=== PATIENT | female | born 1935 | race Caucasian/White ===

== ENCOUNTER 2017-03-22 11:59 | Inpatient (IN) | payer OTHER ==
[~2017-03-22] VITALS: Ht 160 cm; Wt 56.0 kg
[2017-03-22] MEDS ORDERED: MoRPHine SULFATE 2 MG/ML CARP IV PRN (12:15)
[2017-03-22] MEDS: MoRPHine SULFATE 4 MG/ML 1 ML CARP\\VIAL IV PRN ×2 (12:28→13:38)
[2017-03-22 12:41] LABS: BASO % 0.4 %; BASO ABS # 0.03 K/uL (0-0.2); EOS % 0.4 %; HEMATOCRIT 32.8 % (37-47); IG% 0.3 %; LYMPH % 23.4 %; LYMPH ABS # 1.69 K/uL (1.2-3.4); MEAN CELL VOLUME 119.3 fL (80-100); MEAN CORPUSCULAR HEMOGLOBIN 41.1 pg (25-34); MEAN CORPUSCULAR HGB CONC 34.5 g/dl (32-36); MEAN PLATELET VOLUME 9.4 fL (7.4-10.4); NEUT % 65.5 %; PLATELET COUNT 459 K/uL (130-400); RED BLOOD COUNT 2.75 M/uL (4.2-5.4); WHITE BLOOD COUNT 7.22 K/uL (4.8-10.8)
[2017-03-22 12:52] LABS: INR 1.1 (0.9-1.1); PARTIAL THROMBOPLASTIN RATIO 1.1
[2017-03-22 12:58] LABS: BUN/CREATININE RATIO 15.3 (10-20); CALCIUM 9.1 mg/dl (8.5-10.1); CREATININE 1.1 mg/dl (0.60-1.20); POTASSIUM 3.8 mmol/L (3.5-5.1)
[2017-03-22 13:13] LABS: COMPLETE YES
--- NOTE | 2017-03-22 13:31 | DIAGNOSTIC IMAGING REPORT ---
LEFT FEMUR 2 VIEWS CLINICAL HISTORY: Fall with left leg pain. FINDINGS: AP and crosstable lateral views of left femur are obtained. No prior studies are available for comparison at the time of dictation. The skeletal structures are osteopenic. A nondistracted intertrochanteric fracture is suspected. The distal femur is intact. The visualized left hemipelvis appears maintained. Mild arthritic changes present in the left hip. Mild soft tissue swelling is seen overlying the left hip. IMPRESSION: Suspect a nondistracted intertrochanteric fracture of the left femur. Electronically signed by: Lion Lam M.D. 03/22/2017 1:29 PM Dictated Date/Time: 03/22/2017 1:28 PM
--- NOTE | 2017-03-22 13:35 | EMERGENCY ROOM VISIT NOTE ---
History Report prepared by Fercho: Alvaro Murillo Under the Supervision of: Dr. Romero Cohn D.O. First contact with patient: 12:07 Stated Complaint: FALL/L-HIP PAIN History of Present Illness The patient is a 81 year old female who presents to the Emergency Room with complaints of a sudden fall occurring prior to arrival. The patient states that her dog jumped on her and knocked her over, and now she is having left hip, leg , and knee pain. She states that she hit her left hip when she fell, and afterwards she could not get up. She states that she did not hit her head or hurt anything else during the fall. Source of History: patient Onset: prior to arrival Position: other (global) Quality: other (fall) Timing: other (sudden) Note: Associated symptoms: Left hip, leg, and knee pain Review of Systems See HPI for pertinent positives & negatives. A total of 10 systems reviewed and were otherwise negative. Past Medical & Surgical Medical Problems: (1) Hip fracture (2) HTN (hypertension) Social History Marital Status: Occupation Status: retired Current/Historical Medications Scheduled Cholecalciferol (Vitamin D3), 1 TAB PO DAILY Cyanocobalamin (Vitamin B-12), 1,000 MCG PO DAILY Hydroxyurea (Hydrea Cap), 500 MG PO BID Levothyroxine Sodium (Levothyroxine Sodium), 1 TAB PO DAILY Allergies Coded Allergies: No Known Allergies (Unverified , 03/22/17) Physical Exam Vital Signs Date Time Temp Pulse Resp B/P (MAP) Pulse Ox O2 Delivery O2 Flow Rate FiO2 03/22/17 14:23 86 26 199/83 100 Room Air 03/22/17 14:14 100 Room Air 03/22/17 13:58 86 19 201/138 100 Room Air 03/22/17 13:41 86 19 199/89 100 Room Air 03/22/17 13:20 03/22/17 13:00 75 03/22/17 12:39 77 21 210/86 99 Room Air 03/22/17 12:11 36.8 86 22 202/75 97 Room Air Physical Exam CONSTITUTIONAL/VITAL SIGNS: Reviewed / noted above. GENERAL: Non-toxic in appearance. INTEGUMENTARY: Warm, dry, and [place]. HEAD: Normocephalic. EYES: without scleral icterus or trauma. ENT/OROPHARYNX: clear and moist. LYMPHADENOPATHY/NECK: Is supple without lymphadenopathy or meningismus. RESPIRATORY: Lungs clear and equal. CARDIOVASCULAR: Regular rate and rhythm. GI/ABDOMEN: Soft and nontender. No organomegaly or pulsatile mass. No rebound or guarding. Normal bowel sounds. EXTREMITIES: Moderate pain in the left hip with movement. Slight shortening of the left hip compared to the right. BACK: No CVA tenderness. NEUROLOGICAL: Intact without focal deficits. PSYCHIATRIC: normal affect. MUSCULOSKELETAL: Normally developed with good muscle tone. Medical Decision & Procedures ER Provider Diagnostic Interpretation: Radiology results as stated below per my review and radiologist interpretation: LEFT FEMUR 2 VIEWS CLINICAL HISTORY: Fall with left leg pain. FINDINGS: AP and crosstable lateral views of left femur are obtained. No prior studies are available for comparison at the time of dictation. The skeletal structures are osteopenic. A nondistracted intertrochanteric fracture is suspected. The distal femur is intact. The visualized left hemipelvis appears maintained. Mild arthritic changes present in the left hip. Mild soft tissue swelling is seen overlying the left hip. IMPRESSION: Suspect a nondistracted intertrochanteric fracture of the left femur. Electronically signed by: Lion Lam M.D. 03/22/2017 1:29 PM Dictated Date/Time: 03/22/2017 1:28 PM SINGLE VIEW CHEST CLINICAL HISTORY: Trauma. Fall. FINDINGS: An AP, portable, supine chest radiograph is obtained. No prior studies are available for comparison at the time of dictation. The examination is degraded by portable technique and patient rotation. The heart is top normal for projection. There is atherosclerotic calcification of the thoracic aorta. Nonspecific interstitial thickening is noted. No airspace consolidation, large pleural effusion, or pneumothorax is seen. Apical scarring is observed. The skeletal structures are osteopenic. The bony thorax is grossly intact. An indeterminant calcification is seen in the right upper quadrant of the abdomen. IMPRESSION: No acute cardiopulmonary abnormality. Electronically signed by: Lion Lam M.D. 03/22/2017 1:31 PM Dictated Date/Time: 03/22/2017 1:30 PM LEFT HIP 2 VIEWS HISTORY: Left hip pain COMPARISON: Left femur 03/22/2017. FINDINGS: Nondisplaced intertrochanteric fracture of the proximal left femur. No dislocation. The visualized pelvic bones and right hip are intact. The sacrum is maintained. The bones are osteopenic. Soft tissues are unremarkable. No radiopaque foreign bodies. IMPRESSION: Nondisplaced intertrochanteric fracture of the proximal left femur. Electronically signed by: Leighton Uribe M.D. 03/22/2017 1:32 PM Dictated Date/Time: 03/22/2017 1:31 PM Laboratory Results 03/22/17 12:19 Red Blood Count 2.75, Mean Corpuscular Volume 119.3, Mean Corpuscular Hemoglobin 41.1, Mean Corpuscular Hemoglobin Concent 34.5, Mean Platelet Volume 9.4, Neutrophils (%) (Auto) 65.5, Lymphocytes (%) (Auto) 23.4, Monocytes (%) ( Auto) 10.0, Eosinophils (%) (Auto) 0.4, Basophils (%) (Auto) 0.4, Neutrophils # (Auto) 4.73, Lymphocytes # (Auto) 1.69, Monocytes # (Auto) 0.72, Eosinophils # ( Auto) 0.03, Basophils # (Auto) 0.03 03/22/17 12:19 Test 03/22/17 12:19 03/22/17 14:30 White Blood Count 7.22 K/uL (4.8-10.8) Red Blood Count 2.75 M/uL (4.2-5.4) Hemoglobin 11.3 g/dL (12.0-16.0) Hematocrit 32.8 % (37-47) Mean Corpuscular Volume 119.3 fL (80-100) Mean Corpuscular Hemoglobin 41.1 pg (25-34) Mean Corpuscular Hemoglobin Concent 34.5 g/dl (32-36) Platelet Count 459 K/uL (130-400) Mean Platelet Volume 9.4 fL (7.4-10.4) Neutrophils (%) (Auto) 65.5 % Lymphocytes (%) (Auto) 23.4 % Monocytes (%) (Auto) 10.0 % Eosinophils (%) (Auto) 0.4 % Basophils (%) (Auto) 0.4 % Neutrophils # (Auto) 4.73 K/uL (1.4-6.5) Lymphocytes # (Auto) 1.69 K/uL (1.2-3.4) Monocytes # (Auto) 0.72 K/uL (0.11-0.59) Eosinophils # (Auto) 0.03 K/uL (0-0.5) Basophils # (Auto) 0.03 K/uL (0-0.2) RDW Standard Deviation 57.2 fL (36.4-46.3) RDW Coefficient of Variation 13.2 % (11.5-14.5) Immature Granulocyte % (Auto) 0.3 % Immature Granulocyte # (Auto) 0.02 K/uL (0.00-0.02) Macrocytosis PRESENT Prothrombin Time 12.0 SECONDS (9.0-12.0) Prothromb Time International Ratio 1.1 (0.9-1.1) Activated Partial Thromboplast Time 28.8 SECONDS (21.0-31.0) Partial Thromboplastin Ratio 1.1 Anion Gap 7.0 mmol/L (3-11) Est Creatinine Clear Calc Drug Dose 33.7 ml/min Estimated GFR () 54.9 Estimated GFR (Non- 47.4 BUN/Creatinine Ratio 15.3 (10-20) Calcium Level 9.1 mg/dl (8.5-10.1) Laboratory results as stated above per my review. Medications Administered Medications (Trade) Dose Ordered Sig/Riky Route Start Time Stop Time Status Last Admin Dose Admin Morphine Sulfate (MoRPHine SULFATE INJ) 4 mg Q60M PRN IV 03/22/17 12:15 04/05/17 12:14 03/22/17 13:38 4 MG Hydralazine HCl (HydrALAZINE INJ) 20 mg STK-MED ONCE .ROUTE 03/22/17 14:22 03/22/17 14:23 DC 03/22/17 14:24 10 MG ECG Indication: other (fall ) Rate (beats per minute): 80 Rhythm: normal sinus Findings: no ectopy, other (No injury) ED Course 1207: Previous medical records were reviewed. The patient was evaluated in room A12. A complete history and physical examination was performed. 1215: Morphine Sulfate 4mg IV, Morphine Sulfate 2mg IV 1337: Discussed the patient's case with Hosea Lucero PA-C. The patient will be evaluated for further treatment and disposition. Medical Decision Differential includes close head injury, intracranial bleed, facial trauma, cervical spine trauma, chest and thoracic trauma, abdominal and intra-abdominal trauma, spine neurologic trauma, extremity trauma. This is an 81-year-old female who presents to the ED with a chief complaint of a fall and left hip pain. The patient states that she was knocked over by her dog this morning falling onto her left hip. She was not able to get up. She presents complaining of left hip pain that is worse with movement. Her exam is noted above. She has some mild shortening of her left leg compared to the right. She has moderate pain on movement of her left hip. Patient denies any other injuries. She does not have any other physical exam findings suggesting other acute injuries. Denies striking her head. Denies loss of consciousness or near syncope. She is distally neurovascularly intact. X-ray of the pelvis and left hip revealed findings suggesting a nondisplaced impacted left intertrochanteric hip fracture. Chest x-ray is negative for acute disease. CBC and PRP were unremarkable. EKG shows a normal sinus rhythm. The patient will be seen by the hospitalist service and subsequently orthopedics for further inpatient evaluation and care. Medication Reconcilliation Current Medication List: was personally reviewed by me Blood Pressure Screening Patient's blood pressure: Elevated blood pressure Blood pressure disposition: Elevated BP felt to be situational Consults Time Called: 1331 Consulting Physician: Hosea Hankins PA-C Returned Call: [phone] Discussed the patient's case with Hosea Lucero PA-C. The patient will be evaluated for further treatment and disposition. Impression Primary Impression: Fracture, intertrochanteric, left femur Additional Impression: Fall Scribe Attestation The scribe's documentation has been prepared under my direction and personally reviewed by me in its entirety. I confirm that the note above accurately reflects all work, treatment, procedures, and medical decision making performed by me. Departure Information Dispostion Being Evaluated By Hospitalist Problem Qualifiers Primary Impression: Fracture, intertrochanteric, left femur Encounter type: initial encounter
[2017-03-22] MEDS ORDERED: ONDANSETRON INJ 2 MG/ML 2 ML VIAL IV PRN (13:45)
[2017-03-22] MEDS ORDERED: SOD PHOSPHATE/SOD BIPHOSPHATE ENEMA 132 ML BTL PR PRN (13:45)
[2017-03-22] MEDS ORDERED: MoRPHine SULFATE 4 MG/ML 1 ML CARP\\VIAL IV PRN (13:45)
[2017-03-22] MEDS ORDERED: ACETAMINOPHEN 325 MG TAB PO PRN (13:45)
[2017-03-22] MEDS ORDERED: POLYETHYLENE (MIRALAX) 17 GM PACK PO PRN (13:45)
[2017-03-22] MEDS ORDERED: BISACODYL 10 MG SUPP PR PRN (13:45)
[2017-03-22] MEDS ORDERED: MAGNESIUM HYDROXIDE SUSP 30 ML UDC PO PRN (13:45)
[2017-03-22] MEDS ORDERED: NALOXONE HCL 0.4 MG/1 ML VIAL/CARP IV PRN (13:45)
[2017-03-22] MEDS ORDERED: LEVO112T4 PO (13:47)
[2017-03-22] MEDS ORDERED: HYDR500C3 PO (13:47)
[2017-03-22] MEDS ORDERED: CYAN10005 PO (13:47)
[2017-03-22] MEDS ORDERED: CHOL1000 PO (13:47)
[2017-03-22] MEDS ORDERED: LEVO50TA6 PO (13:50)
[2017-03-22] MEDS ORDERED: HydrALAZINE HCL 20 MG/ML VIAL IV. PRN ×2 (14:00→20:15)
[2017-03-22 14:14] VITALS: O2SAT 100; Ht 160 cm; Wt 56.0 kg
[2017-03-22] MEDS ORDERED: HydrALAZINE HCL 20 MG/ML VIAL ONE (14:22)
[2017-03-22 14:44] LABS: URINE APPEARANCE CLEAR (CLEAR); URINE BILIRUBIN NEG (NEG); URINE COLOR YELLOW; URINE NITRITE NEG (NEG); URINE SPECIFIC GRAVITY 1.015 (1.000-1.030); UROBILINOGEN NEG (NEG); ZZURINE CULT IF INDIC CATH NO
[2017-03-22] MEDS ORDERED: INFLUENZA VACCINE HIGH DOSE 65+ 0.5 ML SYR IM. ONE (14:45)
[2017-03-22] MEDS ORDERED: INFLUENZA ADMINISTRATION CHARGE ONE (14:45)
[2017-03-22 14:54] LABS: MANUAL MICROSCOPIC REQUIRED? NO; REVIEW REQ? NO
[2017-03-22] MEDS ORDERED: CLONIDINE HCL 0.1 MG TAB PO ONE (15:30)
[2017-03-22] MEDS ORDERED: MULT-506 PO (16:18)
[2017-03-22] MEDS ORDERED: CHOL1TAB42 PO (16:18)
[2017-03-22] MEDS ORDERED: ASPI-435 PO (16:18)
[2017-03-22 16:36] VITALS: BP 189/72; PULSE 74; TEMP 36.9; O2SAT 92
[2017-03-22] MEDS: MoRPHine SULFATE 2 MG/ML CARP IV PRN (16:53)
[2017-03-22 18:37] VITALS: BP 176/72; PULSE 79; TEMP 36.5; O2SAT 97
--- NOTE | 2017-03-22 18:41 | Anesthesiology Progress Note ---
Anesthesia Progress Note Date of Service Mar 22, 2017. Progress Notes Patient with left hip fracture, history of hypertension. Keep NPO after midnight except meds and expect to bring her to OR in customer care representative tomorrow.
--- NOTE | 2017-03-22 20:17 | History and Physical ---
History & Physical Date & Time of Service: Mar 22, 2017 at 15:37 Chief Complaint: Fall/L-Hip Pain Primary Care Physician: Talita Diana D.O. History of Present Illness Source: patient, clinic records This is an 81 y/o female with PMH of hypothyroidism, osteoporosis, essential thrombocythemia, CKD stage III, chronic back pain, and other problems listed below who presents to the ED with left hip pain s/p mechanical fall. Patient was outside her home today and was knocked down by her dog onto her left side. She was unable to stand up due to left hip pain. Her son found her and called 911 and she was brought to ER by ambulance. In the ER she received total of 8 mg of morphine. States hip pain is controlled if she lies still but rates pain 10/10 with movement. Patient was in her normal state of health prior to the fall. Has chronic low back pain unchanged x 4 years with radiation down left leg to the foot and left leg paresthesias. Denies LE weakness. Has chronic bladder leaking and frequency which is unchanged. Follows with Dr. Bagley and has received lumbar spinal injection. Patient climbs 16 steps daily without POWER. Denies fever, chills, chest pain, abdominal pain, N/V/D/C, dysuria. BP is elevated in ER. Pt states her BP elevates situationally but no chronic hypertension. Denies hx of CAD, DM, CVA. No prior echo. Past Medical/Surgical History Medical Problems: (1) Essential thrombocythemia Status: Chronic (2) Hypothyroidism Status: Chronic (3) Osteoporosis Status: Chronic (4) S/p spinal injection Status: Chronic Surgical Problems: (1) History of hysterectomy Status: Chronic (2) S/P appendectomy Status: Chronic Family History FH: CAD (coronary artery disease) FATHER Social History Smoking Status: Never Smoker Alcohol Use: none Marital Status: Housing status: lives with family Occupational Status: retired Allergies Coded Allergies: No Known Allergies (Unverified , 03/22/17) Home Medications Scheduled Aspirin (Aspirin 81), 81 MG PO DAILY Cholecalciferol (Vitamin D), 1 TAB PO DAILY Cyanocobalamin (Vitamin B-12), 1,000 MCG PO BID Hydroxyurea (Hydrea Cap), 500 MG PO BID Levothyroxine Sodium (Levothyroxine Sodium), 1 TAB PO DAILY Multivitamin (Multivitamin), 1 TAB PO DAILY Review of Systems Constitutional: No fever, No chills ENT: No nasal symptoms, No sore throat Respiratory: No cough, No shortness of breath, No dyspnea on exertion Cardiovascular: No chest pain Abdomen: No pain, No nausea, No vomiting, No diarrhea Musculoskeletal: + joint pain (see HPI) Genitourinary - Female: + urinary frequency (chronic), + urinary incontinence ( chronic), No dysuria Neurologic: + problem reported (see HPI) Psychiatric: No anxiety Integumentary: No new/changing skin lesions Physical Exam Vital Signs Date Time Temp Pulse Resp B/P (MAP) Pulse Ox O2 Delivery O2 Flow Rate FiO2 03/22/17 14:46 91 24 181/89 98 Room Air 03/22/17 14:23 86 26 199/83 100 Room Air 03/22/17 14:14 100 Room Air 03/22/17 13:58 86 19 201/138 100 Room Air 03/22/17 13:41 86 19 199/89 100 Room Air 03/22/17 13:20 03/22/17 13:00 75 03/22/17 12:39 77 21 210/86 99 Room Air 03/22/17 12:11 36.8 86 22 202/75 97 Room Air General Appearance: WD/WN, + mild distress (due to hip pain), + pertinent finding (son at bedside) Head: normocephalic, atraumatic Eyes: normal inspection, sclerae normal ENT: pharynx normal, + pertinent finding (bilateral hearing loss) Neck: supple, trachea midline Respiratory/Chest: lungs clear, normal breath sounds, no respiratory distress Cardiovascular: regular rate, rhythm, + systolic murmur (grade II) Abdomen/GI: normal bowel sounds, non tender, soft Extremities/Musculoskelatal: no pedal edema, + pertinent finding (left lateral hip tender to palpation. pain with minimal movement of left hip. LLE externally rotated. ) Neurologic/Psych: alert, normal mood/affect, oriented x 3, + pertinent finding (sensation to light touch intact bilateral feet. ankle flexion/ extension intact bilaterally ) Skin: normal color, warm/dry Diagnostics Laboratory Results Results Past 24 Hours Test 03/22/17 12:19 03/22/17 14:30 Range/Units White Blood Count 7.22 4.8-10.8 K/uL Red Blood Count 2.75 4.2-5.4 M/uL Hemoglobin 11.3 12.0-16.0 g/dL Hematocrit 32.8 37-47 % Mean Corpuscular Volume 119.3 80-100 fL Mean Corpuscular Hemoglobin 41.1 25-34 pg Mean Corpuscular Hemoglobin Concent 34.5 32-36 g/dl Platelet Count 459 130-400 K/uL Mean Platelet Volume 9.4 7.4-10.4 fL Neutrophils (%) (Auto) 65.5 % Lymphocytes (%) (Auto) 23.4 % Monocytes (%) (Auto) 10.0 % Eosinophils (%) (Auto) 0.4 % Basophils (%) (Auto) 0.4 % Neutrophils # (Auto) 4.73 1.4-6.5 K/uL Lymphocytes # (Auto) 1.69 1.2-3.4 K/uL Monocytes # (Auto) 0.72 0.11-0.59 K/uL Eosinophils # (Auto) 0.03 0-0.5 K/uL Basophils # (Auto) 0.03 0-0.2 K/uL RDW Standard Deviation 57.2 36.4-46.3 fL RDW Coefficient of Variation 13.2 11.5-14.5 % Immature Granulocyte % (Auto) 0.3 % Immature Granulocyte # (Auto) 0.02 0.00-0.02 K/uL Macrocytosis PRESENT Prothrombin Time 12.0 9.0-12.0 SECONDS Prothromb Time International Ratio 1.1 0.9-1.1 Activated Partial Thromboplast Time 28.8 21.0-31.0 SECONDS Partial Thromboplastin Ratio 1.1 Sodium Level 138 136-145 mmol/L Potassium Level 3.8 3.5-5.1 mmol/L Chloride Level 105 98-107 mmol/L Carbon Dioxide Level 26 21-32 mmol/L Anion Gap 7.0 3-11 mmol/L Blood Urea Nitrogen 17 7-18 mg/dl Creatinine 1.10 0.60-1.20 mg/dl Est Creatinine Clear Calc Drug Dose 33.7 ml/min Estimated GFR () 54.9 Estimated GFR (Non- 47.4 BUN/Creatinine Ratio 15.3 10-20 Random Glucose 108 70-99 mg/dl Calcium Level 9.1 8.5-10.1 mg/dl Urine Color YELLOW Urine Appearance CLEAR CLEAR Urine pH 8.0 4.5-7.5 Urine Specific [place] 1.015 1.000-1.030 Urine Protein NEG NEG Urine Glucose (UA) NEG NEG Urine Ketones 1+ NEG Urine Occult Blood NEG NEG Urine Nitrite NEG NEG Urine Bilirubin NEG NEG Urine Urobilinogen NEG NEG Urine Leukocyte Esterase NEG NEG Diagnostic Radiology LEFT FEMUR 2 VIEWS IMPRESSION: Suspect a nondistracted intertrochanteric fracture of the left femur. SINGLE VIEW CHESTIMPRESSION: No acute cardiopulmonary abnormality. LEFT HIP 2 VIEWSIMPRESSION: Nondisplaced intertrochanteric fracture of the proximal left femur. EKG Normal sinus rhythm, 80 bpm, Normal ECG, No previous ECGs available, as per cardiology read, also reviewed by me Impression Assessment and Plan LEFT FEMUR FRACTURE S/p mechanical fall Management per protocol CBC shows chronically elevated platelets, otherwise labs unremarkable, EKG, CXR unremarkable, functional status good- climbs 16 steps daily without dyspnea Check echo prior to surgery due to murmur, if normal may proceed to OR Consult ortho- discussed with Valdo Reeder PA-C, appreciate input, patient is scheduled for OR tomorrow morning NPO after midnight ELEVATED BP Likely secondary to pain, no hx of HTN Given hydralazine in clonidine in ER Continue hydralazine PRN Monitor BP CKD STAGE III Creat is stable Avoid nephrotoxins including NSAIDs HYPOTHYROIDISM Check TSH Continue levothyroxine ESSENTIAL THROMBOCYTHEMIA Follows with hematology Resume hydroxyurea after surgery OSTEOPOROSIS Resume vitamin D supplement after procedure Patient seen in collaboration with Dr. Ruelas. Please see his addendum. Attending Addendum: The patient was seen and [id number] s/p Mechanical fall resulting in fracture of the left Femur Is in pain but no other symptoms O/E Hemodynamically stable Chest-clear Heart-regular,2/6 ESM Precordial area Abdomen-benign Labs and Imaging studies were reviewed Agree with the assessment and plan DR Donovan Ruelas Advanced Directives Existing Living Will: No Existing Power of Rn Digestive: No VTE Prophylaxis VTE Risk Assessment Done? Y/N: Yes Risk Level: Moderate Given or contraindicated: SCD's
[2017-03-22] MEDS ORDERED: DOCUSATE SODIUM/SENNA 50/8.6MG TAB PO SCH (21:00)
--- NOTE | 2017-03-22 22:16 | CONSULTATION REPORT ---
DATE OF CONSULTATION: 03/22/2017 REASON FOR CONSULT: Left hip fracture. HISTORY OF PRESENT ILLNESS: The patient is an 81-year-old white female, who states that her dog jumped up on her, knocking her to the ground today. She states that she landed onto her left hip and buttock at that time and had immediate pain in her left hip and groin. She was unable to get up and ambulate and was brought to the Emergency Room. She was seen by the staff. X-rays were taken and it was found that she had a left intertrochanteric hip fracture that was nondisplaced. We have now been consulted to see her for this hip fracture. The patient currently is lying in bed and states that she has a lot of pain in her left hip when she tries to move it. She states that she has a lot of pain that goes down to her left knee and she is having difficulty moving her left knee, as well. She denies loss of consciousness and she denies any shortness of breath or chest pain or lightheadedness prior to or after the fall. PAST MEDICAL HISTORY: Hypertension, osteoporosis, hypothyroidism. PAST SURGICAL HISTORY: Hysterectomy. FAMILY HISTORY: Noncontributory at this time. SOCIAL HISTORY: The patient is and is a nonsmoker, does not use alcohol. MEDICATIONS: Vitamin D3 one tab p.o. daily, vitamin B12 1000 mcg p.o. daily, Hydrea capsule 500 mg p.o. b.i.d., levothyroxine 1 tab p.o. daily. ALLERGIES: NKDA. REVIEW OF SYSTEMS: As per admitting history and physical. PHYSICAL EXAMINATION: GENERAL: The patient is an elderly white female, who appears her stated age. She is pleasant and cooperative, oriented to person and place and in no acute distress. EXTREMITIES: Focusing on her left lower extremity, it is mildly shortened and externally rotated compared to the right side. Any attempts to move the left lower extremity causes her moderate pain in the left hip and groin as well as radiating down to her left knee. On palpation of her left knee, she does complain of some pain, which seems to be above the left knee; however, there is no overt swelling of the left knee and no overt bruising noted. She has good range of motion of her left ankle and toes and has good sensation. The right lower extremity is essentially benign and she has good range of motion of the right hip, knee and ankle. However, increased activity causes her left hip pain to flare. Upper extremities are essentially within normal limits at this time. Range of motion is within normal limits of the shoulders, elbows and wrists and she is nontender on palpation throughout. She denies neck pain on palpation and has good range of motion at this time. She denies any thoracic back pain at this time. She has some mild low back pain, which is normal for her, but seems to be aggravated since the fall. She denies shooting pains down in the left lower extremity into the toes and denies any numbness going down the left lower extremity at this time. X-ray review shows a nondisplaced intertrochanteric fracture of the left proximal femur. I cannot appreciate any fractures or injuries of the left knee at this time. ASSESSMENT: Left nondisplaced intertrochanteric hip fracture. PLAN: I have spoken to the medicine service, who is admitting this patient. They are checking with anesthesia, as well, to see if she would warrant an echocardiogram at this time. She has been put on the operating room schedule and will need an IM trochanteric nailing. I discussed this with the patient and with the patient's son, who are in agreement for treatment and plans are for a left TFN by Dr. Vaughan tomorrow morning, pending clearance. [facility]
[2017-03-22 23:03] VITALS: BP 174/63; PULSE 76; TEMP 36.9; O2SAT 98
[2017-03-23] VITALS (11 sets, daily range): BP systolic 124–172; BP diastolic 62–80; PULSE 78–92; TEMP 36.6–38.1; O2SAT 93–97
[2017-03-23] MEDS: MoRPHine SULFATE 2 MG/ML CARP IV PRN ×2 (00:25→06:10)
[2017-03-23] MEDS ORDERED: CEFAZOLIN 2000 MG/60 ML D5W IV SCH (06:00)
[2017-03-23] MEDS ORDERED: LEVOTHYROXINE 50 MCG TAB PO SCH (06:00)
[2017-03-23] MEDS ORDERED: CEFAZOLIN IV 2,000 MG in DEXTROSE 5% 50ML 50 ML IV SCH (06:00)
[2017-03-23] MEDS ORDERED: MIDAZOLAM HCL 1 MG/ML 2ML VIAL ONE (07:16)
[2017-03-23] MEDS ORDERED: FENTANYL CITRATE INJ 50 MCG/1 ML 2 ML VIAL ONE (07:16)
[2017-03-23] MEDS ORDERED: BUPIVACAINE 0.5 % 5 MG/1 ML PF 10ML VIAL ONE (07:18)
--- NOTE | 2017-03-23 07:36 | Progress Note ---
Orthopedic SOAP Note Subjective Date of Service: Mar 23, 2017. Additional Notes: pain left hip even at rest Problem List Medical Problems: (1) Fall Status: Acute (2) Fracture, intertrochanteric, left femur Status: Acute Objective no bruising ,pain with any movement left hip no major shortening Date Time Temp Pulse Resp B/P (MAP) Pulse Ox O2 Delivery O2 Flow Rate FiO2 03/23/17 07:15 36.8 89 20 161/70 (100) 95 Room Air 03/23/17 03:33 86 152/67 (95) 03/23/17 00:14 Room Air 03/22/17 23:03 36.9 76 20 174/63 (100) 98 Room Air 03/22/17 18:37 36.5 79 18 176/72 (106) 97 Room Air 03/22/17 16:36 36.9 74 18 189/72 (111) 92 Room Air 03/22/17 16:36 Room Air 03/22/17 16:00 92 18 167/74 99 03/22/17 14:46 91 24 181/89 98 Room Air 03/22/17 14:23 86 26 199/83 100 Room Air 03/22/17 14:14 100 Room Air 03/22/17 13:58 86 19 201/138 100 Room Air 03/22/17 13:41 86 19 199/89 100 Room Air 03/22/17 13:20 03/22/17 13:00 75 03/22/17 12:39 77 21 210/86 99 Room Air 03/22/17 12:11 36.8 86 22 202/75 97 Room Air Laboratory Results 24 Hours: Test 03/22/17 12:19 White Blood Count 7.22 K/uL Red Blood Count 2.75 M/uL Hemoglobin 11.3 g/dL Hematocrit 32.8 % Mean Corpuscular Volume 119.3 fL Mean Corpuscular Hemoglobin 41.1 pg Mean Corpuscular Hemoglobin Concent 34.5 g/dl Platelet Count 459 K/uL Mean Platelet Volume 9.4 fL Neutrophils (%) (Auto) 65.5 % Lymphocytes (%) (Auto) 23.4 % Monocytes (%) (Auto) 10.0 % Eosinophils (%) (Auto) 0.4 % Basophils (%) (Auto) 0.4 % Neutrophils # (Auto) 4.73 K/uL Lymphocytes # (Auto) 1.69 K/uL Monocytes # (Auto) 0.72 K/uL Eosinophils # (Auto) 0.03 K/uL Basophils # (Auto) 0.03 K/uL Prothromb Time International Ratio 1.1 Prothrombin Time 12.0 SECONDS Assessment intertrochanteric/ subtrochanteric fracture left hip with minimal displacement Plan ORIF trochanteric femoral nail left hip
[2017-03-23] MEDS ORDERED: CEFAZOLIN SOD 1 GM VIAL ONE (08:03)
[2017-03-23] MEDS ORDERED: EpHEDrine SULFATE INJ 50 MG/ML AMP IV PRN (08:30)
[2017-03-23] MEDS ORDERED: HYDROmorphone INJ 0.5 MG/0.5 ML SYR IV PRN ×2 (08:30→09:30)
[2017-03-23] MEDS ORDERED: ONDANSETRON INJ 2 MG/ML 2 ML VIAL IV PRN ×2 (08:30→09:30)
[2017-03-23] MEDS ORDERED: PHENYLEPHRINE 100MCG/ML 5ML SYR IV PRN (08:30)
[2017-03-23] MEDS ORDERED: ATROPINE SULFATE 0.1 MG/ML 5ML SYR IV PRN (08:30)
[2017-03-23] MEDS ORDERED: PROPOFOL IV EMULSION 10 MG/ML 20 ML VIAL IV ONE (08:39)
--- NOTE | 2017-03-23 09:14 | DIAGNOSTIC IMAGING REPORT ---
L HIP OR FILMS HISTORY: 81 years-old Female LT TROCH status post placement of a left intertrochanteric nail status post fracture COMPARISON: Left hip radiographs 03/22/2017 TECHNIQUE: 3 spot fluoroscopic images of the left hip were obtained utilizing 87.9 seconds fluoroscopy time FINDINGS: There has been interval placement of an intratrochanteric nail with medullary ryan of the left femur fixating a previously noted nondisplaced acute intertrochanteric fracture. Alignment is satisfactory. No periprosthetic fracture or other complication identified. 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 IMPRESSION: Fluoroscopic assistance as above. Please see operative report for further details. The above report was generated using voice recognition software. It may contain grammatical, syntax or spelling errors. Electronically signed by: Christopher Diaz M.D. 03/23/2017 9:13 AM Dictated Date/Time: 03/23/2017 9:11 AM
--- NOTE | 2017-03-23 09:23 | [facility] Post Operative Brief Note ---
Immediate Operative Summary Operative Date Mar 23, 2017. Pre-Operative Diagnosis Left nondisplaced intertrochanteric -subtrochanteric hip fracture Post-Operative Diagnosis same as pre-operative Procedure(s) Performed ORIF Trochanteric femoral nail left hip Surgeon Dr. Vaughan Brim Stiffener Surgeon(s) none Estimated Blood Loss 25ml Findings as above Specimens none per surgeon Drains none Anesthesia spinal Complication(s) None Disposition Recovery Room / PACU
[2017-03-23] MEDS ORDERED: MAGNESIUM HYDROXIDE SUSP 30 ML UDC PO PRN (09:30)
[2017-03-23] MEDS ORDERED: NALOXONE HCL 0.4 MG/1 ML VIAL/CARP IV PRN (09:30)
[2017-03-23] MEDS ORDERED: ACETAMINOPHEN 325 MG TAB PO PRN (09:30)
[2017-03-23] MEDS ORDERED: SOD PHOSPHATE/SOD BIPHOSPHATE ENEMA 132 ML BTL PR PRN (09:30)
[2017-03-23] MEDS ORDERED: BISACODYL 10 MG SUPP PR PRN (09:30)
--- NOTE | 2017-03-23 09:38 | Anesthesiology Progress Note ---
Anesthesia Post Op Note Date & Time Mar 23, 2017 at 09:38 Vital Signs Pain Intensity: 0 Vital Signs Past 12 Hours Date Time Temp Pulse Resp B/P (MAP) Pulse Ox O2 Delivery O2 Flow Rate FiO2 03/23/17 09:35 36.1 68 16 151/57 95 Room Air 03/23/17 09:25 69 16 145/50 95 Room Air 03/23/17 09:15 79 16 141/57 97 Room Air 03/23/17 09:07 36 81 16 150/60 96 Room Air 03/23/17 07:15 36.8 89 20 161/70 (100) 95 Room Air 03/23/17 03:33 86 152/67 (95) 03/23/17 00:14 Room Air 03/22/17 23:03 36.9 76 20 174/63 (100) 98 Room Air Notes Mental Status: alert / awake / arousable, participated in evaluation Pt Amnestic to Procedure: Yes Nausea / Vomiting: adequately controlled Pain: adequately controlled Airway Patency, RR, SpO2: stable & adequate BP & HR: stable & adequate Hydration State: stable & adequate Anesthetic Complications: no major complications apparent
[2017-03-23] MEDS ORDERED: LEVOTHYROXINE 25 MCG TAB PO SCH (10:00)
--- NOTE | 2017-03-23 11:02 | OPERATIVE REPORT ---
DATE OF OPERATION: 03/23/2017 INDICATION FOR PROCEDURE: The patient is an 81-year-old female who presents with fracture of her left hip. Her dog jumped up on her, she fell over and sustained a closed intertrochanteric with some subtrochanteric extension fracture of the left hip with no significant displacement. PREOPERATIVE DIAGNOSIS: Left intertrochanteric with subtrochanteric extension fracture, left hip. POSTOPERATIVE DIAGNOSIS: Same. PROCEDURE: ORIF with Synthes trochanteric mid length femoral nail. SURGEON: Dr. Vaughan. CASING SPLITTER: None. ANESTHESIA: Spinal. OPERATIVE PROCEDURE: The patient was taken to the operating room and anesthetized under spinal anesthesia. She was placed on a fracture table. She was brought down to a perineal post. The right leg was placed in a well leg well-padded leg holding device. Right hip was flexed and internally rotated. Her left leg was placed into boot traction. We placed longitudinal traction with the hip in some abduction and internal rotation and adduction and traction to reduce the fracture. The fracture was anatomic. The left hip was sterilely prepped and draped in usual sterile fashion. Small longitudinal incision was made at the tip of the greater trochanter. This was about 3.5 cm incision. The skin was incised sharply. The subcutaneous flaps were divided down to the fascia and the fascia was divided longitudinally and the tip of the trochanter was palpated. The guide pin was placed in the tip of the greater trochanter, visualized under fluoroscopy, placed in position under fluoroscopy in appropriate position and then the reamer was used and then went ahead and put the trochanteric femoral nail on the insertion device. We used a 12 mm diameter x 130 degree neck angle cannulated trochanteric femoral nail which was 235 mm in length. This was inserted into the femur under fluoroscopic guidance adjusted to appropriate depth and then we went ahead and placed a guidewire through the appropriate guide into the mid neck and femoral head and then went ahead and measured the helical blade to be 90 mm in length. Then we used the appropriate reamers and then went ahead and impacted the blade into the head. The bone was soft in the metaphysis are but then we got into the femoral head. There was good solid fixation and more dense bone there. Then I went ahead and locked the screw proximally and then went ahead and put compression across the fracture with the compression device. Then, we went ahead and locked the ryan distally with the 5 mm x 36 mm locking screw. We used the Synthes trochanteric femoral nail fixation system. The fluoroscopy was used to document AP and lateral views to document the alignment which was anatomic. The wounds were then irrigated and then the fascia was closed with [id number] #1 Vicryl sutures. The subcutaneous tissues were closed with interrupted #1 and #2-0 Vicryl sutures and then the skin was closed with blanca. Sterile dressings were applied and the patient tolerated the procedure well. She lost about 25 mL only of blood. I attest to the content of the Intraoperative Record and any orders documented therein. Any exception s are noted below.
[2017-03-23] MEDS: D5W AND NSS 1,000 ML IV SCH (11:17)
--- NOTE | 2017-03-23 14:05 | Progress Note ---
Internal Med Progress Note Date of Service: Mar 23, 2017. Provider Documentation: SUBJECTIVE: The patient was seen and examined S/P ORIF with Synthes trochanteric mid length femoral nail. Complains pain at the operation site Denies any other symptoms OBJECTIVE: Vital Signs-as noted below Exam: General-No distress at rest Eyes-Normal ENT-normal Neck-Supple Lungs-Clear to auscultate bilaterally Heart-regular,no murmur appreciated Abdomen-Benign,no masses,bowel sound present Extremities-NO edema Neuro-AAOx3 Lab data as noted below. ASSESSMENT & PLAN: LEFT FEMUR FRACTURE::::s/p ORIF with Synthes trochanteric mid length femoral nail. S/p mechanical fal CBC shows chronically elevated platelets, otherwise labs unremarkable, EKG, CXR unremarkable, functional status good- climbs 16 steps daily without dyspnea Consult ortho- discussed with Valdo Reeder PA-C, appreciate input, patient is scheduled for OR tomorrow morning S/P ORIF with Synthes trochanteric mid length femoral nail. 03/23/17 pain management as per Ortho ELEVATED BP Likely secondary to pain, no hx of HTN Given hydralazine in clonidine in ER Continue hydralazine PRN Monitor BP-remains on the higher side CKD STAGE III Creat is stable Avoid nephrotoxins including NSAIDs Creatinine remains at normal level HYPOTHYROIDISM Check TSH-elevated Continue levothyroxine Will increase the dose to 75 Mcg ESSENTIAL THROMBOCYTHEMIA Follows with hematology Resume hydroxyurea after surgery OSTEOPOROSIS Resume vitamin D supplement after procedure Medically stable Vital Signs: Date Time Temp Pulse Resp B/P (MAP) Pulse Ox O2 Delivery O2 Flow Rate FiO2 03/23/17 13:00 84 18 157/80 (105) 95 Room Air 03/23/17 11:59 81 18 162/69 (100) 94 Room Air 03/23/17 11:00 81 20 172/71 (104) 97 Room Air 03/23/17 10:25 78 18 154/72 (99) 97 Room Air 03/23/17 09:50 Room Air 03/23/17 09:50 36.6 80 16 143/68 (93) 93 Room Air 03/23/17 09:50 Room Air 93.0 03/23/17 09:35 36.1 68 16 151/57 95 Room Air 03/23/17 09:25 69 16 145/50 95 Room Air 03/23/17 09:15 79 16 141/57 97 Room Air 03/23/17 09:07 36 81 16 150/60 96 Room Air 03/23/17 07:15 36.8 89 20 161/70 (100) 95 Room Air 03/23/17 03:33 86 152/67 (95) 03/23/17 00:14 Room Air 03/22/17 23:03 36.9 76 20 174/63 (100) 98 Room Air 03/22/17 18:37 36.5 79 18 176/72 (106) 97 Room Air 03/22/17 16:36 36.9 74 18 189/72 (111) 92 Room Air 03/22/17 16:36 Room Air 03/22/17 16:00 92 18 167/74 99 03/22/17 14:46 91 24 181/89 98 Room Air 03/22/17 14:23 86 26 199/83 100 Room Air 03/22/17 14:14 100 Room Air Lab Results: Results Past 24 Hours Test 03/22/17 14:30 Range/Units Urine Color YELLOW Urine Appearance CLEAR CLEAR Urine pH 8.0 4.5-7.5 Urine Specific [place] 1.015 1.000-1.030 Urine Protein NEG NEG Urine Glucose (UA) NEG NEG Urine Ketones 1+ NEG Urine Occult Blood NEG NEG Urine Nitrite NEG NEG Urine Bilirubin NEG NEG Urine Urobilinogen NEG NEG Urine Leukocyte Esterase NEG NEG Microbiology Results 03/22/17 MRSA DNA Surveillance Screen - Final, Complete Specimen Negative for MRSA by DNA Probe
[2017-03-23] MEDS: ENOXAPARIN 40 MG/0.4 ML SYR SQ SCH (14:24)
--- NOTE | 2017-03-23 15:30 | ECHOCARDIOGRAM REPORT ---
*NOTICE TO RECEIVING [employer] AGENCY This information is strictly Confidential and protected under [place] law. [place] law prohibits you from making any further disclosure of this information unless further disclosure is expressly permitted by the written consent of the person to whom it pertains or is authorized by law. A general authorization for the release of medical or other information is not sufficient for this purpose. Hospital accepts no responsibility if the information is made available to any other person, INCLUDING THE PATIENT. Interpretation Summary * Name: LEVY MONROE Study Date: 03/23/2017 01:14 PM BP: 189/72 mmHg * Patient Location: [facility] HR: 74 * : 1935 (M/d/yyyy) Gender: Female Height: 63 in * Age: 81 yrs Ethnicity: [place] Weight: 123 lb * Ordering Physician: Karma Cantu * Performed By: Zenia Echavarria * * Reason For Study: MURMURS * BSA: 1.6 m2 * -- Conclusions -- * Normal LV chamber size with mild concentric LVH. * Hyperdynamic LV systolic functionEF >70%. * No segmental left ventricular wall motion abnormalities are noted. * Grade I diastolic dysfunction. * Aortic valve sclerosis moderate, without significant aortic valvular stenosis. * Moderate mitral annular calcifications. Procedure Details * A complete two-dimensional transthoracic echocardiogram was performed (2D, M-mode, Doppler and color flow Doppler). * The study was technically difficult. * There were technical limitations due to patient's poor positioning and having recent left hip surgery. Left Ventricle * The left ventricle is normal in size. * There is mild concentric left ventricular hypertrophy. * The basal septum is thickened and angulated consistent with sigmoid septum. * Ejection Fraction = >70 %. * Left ventricular systolic function is normal. * No segmental left ventricular wall motion abnormalities are noted. * The left ventricular wall motion is normal. Right Ventricle * The right ventricular cavity size is normal (basal dimension <4.2 cm in right ventricular apical 4-chamber view). * The right ventricular systolic function is normal as assessed by tricuspid annular plane systolic excursion (TAPSE) (normal >1.5 cm). Atria * The left atrial size is normal. * Right atrial size is normal. * No ASD detected; PFO is not assessed. Mitral Valve * There is moderate mitral annular calcification. * There is no mitral valve stenosis. * There is no mitral regurgitation noted. Tricuspid Valve * The tricuspid valve is normal in structure and function. Aortic Valve * The aortic valve is trileaflet. * Aortic valve sclerosis moderate, without significant aortic valvular stenosis. * There is no significant aortic regurgitation. Pulmonic Valve * The pulmonary valve is not well seen, but the Doppler examination is normal without significant regurgitation or stenosis. Great Vessels * The aortic root is normal size. Pericardium/Pleural * There is no pericardial effusion. Left Ventricular Diastolic Function * Grade I diastolic dysfunction, (abnormal relaxation pattern). MMode 2D Measurements and Calculations IVSd 1.6 cm IVSs 2.2 cm LVIDd 3.6 cm LVIDs 2.1 cm LVPWd 1.0 cm LVPWs 2.0 cm IVS/LVPW 1.6 FS 40.2 % EDV(Teich) 54.0 ml ESV(Teich) 15.2 ml EF(Teich) 71.8 % EDV(cubed) 46.2 ml ESV(cubed) 9.9 ml EF(cubed) 78.6 % % IVS thick 33.0 % % LVPW thick 99.3 % LV mass(C)d 161.8 grams LV mass(C)dI 102.8 grams/m\S\2 LV mass(C)s 200.7 grams LV mass(C)sI 127.6 grams/m\S\2 CO(Teich) 3.0 l/min CI(Teich) 1.9 l/min/m\S\2 SV(Teich) 38.8 ml SI(Teich) 24.7 ml/m\S\2 CO(cubed) 2.8 l/min CI(cubed) 1.8 l/min/m\S\2 SV(cubed) 36.4 ml SI(cubed) 23.1 ml/m\S\2 LA dimension 3.5 cm LVAd ap4 29.0 cm\S\2 LVLd ap4 7.4 cm EDV(MOD-sp4) 94.5 ml LVAs ap4 13.8 cm\S\2 LVLs ap4 6.1 cm ESV(MOD-sp4) 25.9 ml EF(MOD-sp4) 72.6 % LVAd ap2 24.9 cm\S\2 LVLd ap2 7.3 cm EDV(MOD-sp2) 71.0 ml LVAs ap2 11.9 cm\S\2 LVLs ap2 6.3 cm ESV(MOD-sp2) 19.6 ml EF(MOD-sp2) 72.4 % CO(MOD-sp4) 5.3 l/min CI(MOD-sp4) 3.4 l/min/m\S\2 SV(MOD-sp4) 68.6 ml SI(MOD-sp4) 43.6 ml/m\S\2 CO(MOD-sp2) 4.0 l/min CI(MOD-sp2) 2.5 l/min/m\S\2 SV(MOD-sp2) 51.4 ml SI(MOD-sp2) 32.7 ml/m\S\2 Doppler Measurements and Calculations MV E max diana 111.6 cm/sec MV A max diana 138.2 cm/sec MV E/A 0.81 MV V2 max 151.2 cm/sec MV max PG 9.1 mmHg MV V2 mean 93.4 cm/sec MV mean PG 3.9 mmHg MV V2 VTI 39.2 cm MV dec time 0.28 sec Ao V2 max 209.6 cm/sec Ao max PG 17.6 mmHg Ao max PG (full) 12.7 mmHg LV V1 max PG 4.9 mmHg LV V1 max 110.6 cm/sec MR max diana 520.3 cm/sec MR max PG 108.3 mmHg PA V2 max 98.5 cm/sec PA max PG 3.9 mmHg TR max diana 292.4 cm/sec
[2017-03-23] MEDS: CEFAZOLIN IV 1,000 MG in DEXTROSE 5% 50ML 50 ML IV SCH ×2 (15:47→23:28)
[2017-03-23] MEDS: OXYCODONE HCL IR 5 MG TAB (IMMEDIATE RELEASE) PO PRN (17:32)
[2017-03-23] MEDS: DOCUSATE SODIUM/SENNA 50/8.6MG TAB PO SCH (20:30)
[2017-03-24 03:30] VITALS: BP 123/69; PULSE 88; TEMP 37.3; O2SAT 95
[2017-03-24] MEDS: LEVOTHYROXINE 75 MCG TAB PO SCH (05:38)
[2017-03-24] MEDS: D5W AND NSS 1,000 ML IV SCH (05:38)
[2017-03-24] MEDS: OXYCODONE HCL IR 5 MG TAB (IMMEDIATE RELEASE) PO PRN ×2 (05:50→12:34)
[2017-03-24 06:55] VITALS: BP 146/62; PULSE 84; TEMP 36.4; O2SAT 96
[2017-03-24 07:17] LABS: BUN/CREATININE RATIO 16.4 (10-20); CALCIUM 8.1 mg/dl (8.5-10.1); CREATININE 0.92 mg/dl (0.60-1.20)
[2017-03-24 07:21] LABS: PREALBUMIN 12.8 mg/dl (20-40)
[2017-03-24 07:28] LABS: HEMATOCRIT 28.5 % (37-47); MEAN CELL VOLUME 119.7 fL (80-100); MEAN CORPUSCULAR HEMOGLOBIN 39.1 pg (25-34); MEAN CORPUSCULAR HGB CONC 32.6 g/dl (32-36); MEAN PLATELET VOLUME 9.3 fL (7.4-10.4); PLATELET COUNT 438 K/uL (130-400); RED BLOOD COUNT 2.38 M/uL (4.2-5.4); WHITE BLOOD COUNT 5.66 K/uL (4.8-10.8)
--- NOTE | 2017-03-24 07:56 | Orthopedic Progress Note ---
Orthopedic Progress Note Date of Service Mar 24, 2017. Subjective Post OP Day: 1 Reports: feeling well Objective N/V intact, dressing C/D/I, toes mobile Date Time Temp Pulse Resp B/P (MAP) Pulse Ox O2 Delivery O2 Flow Rate FiO2 03/24/17 06:55 36.4 84 18 146/62 (90) 96 Room Air 03/24/17 03:30 37.3 88 18 123/69 (87) 95 Room Air 03/23/17 22:42 37.2 88 16 154/62 (92) 95 Room Air 03/23/17 20:00 37.1 86 15 124/66 (85) 97 Room Air 93.0 03/23/17 19:15 Room Air 03/23/17 18:01 145/70 (95) 03/23/17 14:57 38.1 92 14 169/74 (105) 93 Room Air 92 03/23/17 13:00 84 18 157/80 (105) 95 Room Air 03/23/17 11:59 81 18 162/69 (100) 94 Room Air 03/23/17 11:00 81 20 172/71 (104) 97 Room Air 03/23/17 10:25 78 18 154/72 (99) 97 Room Air 03/23/17 09:50 Room Air 03/23/17 09:50 36.6 80 16 143/68 (93) 93 Room Air 03/23/17 09:50 Room Air 93.0 03/23/17 09:35 36.1 68 16 151/57 95 Room Air 03/23/17 09:25 69 16 145/50 95 Room Air 03/23/17 09:15 79 16 141/57 97 Room Air 03/23/17 09:07 36 81 16 150/60 96 Room Air Laboratory Results 24 Hours: Test 03/24/17 06:14 Hematocrit 28.5 % Hemoglobin 9.3 g/dL Assessment & Plan Assessment: 81 yo female stable POD #1 s/p left troch nail Plan: 1. Med management 2. DVT prophylaxis- Lovenox, SCDs 3. PT/OT- TTWB left LE 4. D/C planning: pt interested In [facility]
[2017-03-24 10:06] VITALS: BP 138/72; PULSE 84; O2SAT 96
[2017-03-24] MEDS ORDERED: ERGOCALCIFEROL 50,000 INTER.UNIT CAP PO ONE (10:26)
[2017-03-24 11:31] VITALS: BP 128/70; PULSE 89; TEMP 36.9; O2SAT 97
[2017-03-24] MEDS ORDERED: NURSING VERBAL MED ORDER ONE (13:00)
[2017-03-24] MEDS: ENOXAPARIN 40 MG/0.4 ML SYR SQ SCH (14:02)
--- NOTE | 2017-03-24 14:45 | Progress Note ---
Internal Med Progress Note Date of Service: Mar 24, 2017. Provider Documentation: SUBJECTIVE: The patient was seen and examined S/P ORIF with Synthes trochanteric mid length femoral nail. Complains pain at the operation site Denies any other symptoms Heather better today OOB in a chair OBJECTIVE: Vital Signs-as noted below Exam: General-No distress at rest Eyes-Normal ENT-normal Neck-Supple Lungs-Clear to auscultate bilaterally Heart-regular,no murmur appreciated Abdomen-Benign,no masses,bowel sound present Extremities-NO edema Neuro-AAOx3 Lab data as noted below. ASSESSMENT & PLAN: LEFT FEMUR FRACTURE::::s/p ORIF with Synthes trochanteric mid length femoral nail. S/p mechanical fal CBC shows chronically elevated platelets, otherwise labs unremarkable, EKG, CXR unremarkable, functional status good- climbs 16 steps daily without dyspnea Consult ortho- discussed with Valdo Reeder PA-C, appreciate input, patient is scheduled for OR tomorrow morning S/P ORIF with Synthes trochanteric mid length femoral nail. 03/23/17 pain management as per Ortho Complains of minimal pain ELEVATED BP Likely secondary to pain, no hx of HTN Given hydralazine in clonidine in ER Continue hydralazine PRN Monitor BP-remains on the higher side Normalized CKD STAGE III Creat is stable Avoid nephrotoxins including NSAIDs Creatinine remains at normal level HYPOTHYROIDISM Check TSH-elevated Continue levothyroxine Will increase the dose to 75 Mcg ESSENTIAL THROMBOCYTHEMIA Follows with hematology Resume hydroxyurea after surgery Platelet remains stable Will restart Hydroxyurea OSTEOPOROSIS Resume vitamin D supplement after procedure Medically stable Vital Signs: Date Time Temp Pulse Resp B/P (MAP) Pulse Ox O2 Delivery O2 Flow Rate FiO2 03/24/17 11:31 36.9 89 18 128/70 (89) 97 Room Air 03/24/17 10:06 84 96 03/24/17 07:40 Room Air 03/24/17 06:55 36.4 84 18 146/62 (90) 96 Room Air 03/24/17 03:30 37.3 88 18 123/69 (87) 95 Room Air 03/23/17 22:42 37.2 88 16 154/62 (92) 95 Room Air 03/23/17 20:00 37.1 86 15 124/66 (85) 97 Room Air 93.0 03/23/17 19:15 Room Air 03/23/17 18:01 145/70 (95) 03/23/17 14:57 38.1 92 14 169/74 (105) 93 Room Air 92 Lab Results: Results Past 24 Hours Test 03/24/17 06:14 Range/Units White Blood Count 5.66 4.8-10.8 K/uL Red Blood Count 2.38 4.2-5.4 M/uL Hemoglobin 9.3 12.0-16.0 g/dL Hematocrit 28.5 37-47 % Mean Corpuscular Volume 119.7 80-100 fL Mean Corpuscular Hemoglobin 39.1 25-34 pg Mean Corpuscular Hemoglobin Concent 32.6 32-36 g/dl RDW Standard Deviation 56.4 36.4-46.3 fL RDW Coefficient of Variation 13.2 11.5-14.5 % Platelet Count 438 130-400 K/uL Mean Platelet Volume 9.3 7.4-10.4 fL Nucleated RBC Absolute Count (auto) 0.04 0-0 K/uL Nucleated Red Blood Cells % 0.7 % Sodium Level 136 136-145 mmol/L Potassium Level 4.0 3.5-5.1 mmol/L Chloride Level 104 98-107 mmol/L Carbon Dioxide Level 26 21-32 mmol/L Anion Gap 6.0 3-11 mmol/L Blood Urea Nitrogen 15 7-18 mg/dl Creatinine 0.92 0.60-1.20 mg/dl Est Creatinine Clear Calc Drug Dose 40.3 ml/min Estimated GFR () 68.2 Estimated GFR (Non- 58.8 BUN/Creatinine Ratio 16.4 10-20 Random Glucose 111 70-99 mg/dl Calcium Level 8.1 8.5-10.1 mg/dl Prealbumin 12.8 20-40 mg/dl 25-Hydroxy Vitamin D Total 21.2 30-100 ng/ml
[2017-03-24 14:54] VITALS: BP 154/68; PULSE 88; TEMP 37; O2SAT 98
[2017-03-24] MEDS: DOCUSATE SODIUM/SENNA 50/8.6MG TAB PO SCH (20:50)
[2017-03-24] MEDS: HYDROXYUREA 500 MG CAP PO SCH (20:51)
[2017-03-24 22:53] VITALS: BP 153/63; PULSE 93; TEMP 36.9; O2SAT 98
[2017-03-25] MEDS ORDERED: NURSING VERBAL MED ORDER ONE (00:15)
[2017-03-25] MEDS: LEVOTHYROXINE 75 MCG TAB PO SCH (05:20)
[2017-03-25] MEDS: OXYCODONE HCL IR 5 MG TAB (IMMEDIATE RELEASE) PO PRN ×2 (05:25→17:04)
[2017-03-25 07:30] VITALS: BP 127/89; PULSE 86; TEMP 36.6; O2SAT 95
--- NOTE | 2017-03-25 08:30 | Orthopedic Progress Note ---
Orthopedic Progress Note Date of Service Mar 25, 2017. Subjective Post OP Day: 2 Reports: feeling well, Denies: chest pain, SOB, nausea / vomiting, light headedness, calf pain Objective calves soft nontender, N/V intact, hip located, dressing C/D/I, A&O x3, toes mobile Date Time Temp Pulse Resp B/P (MAP) Pulse Ox O2 Delivery O2 Flow Rate FiO2 03/25/17 07:35 Room Air 03/25/17 07:30 36.6 86 16 127/89 (102) 95 Room Air 03/24/17 23:45 Room Air 03/24/17 22:53 36.9 93 16 153/63 (93) 98 Room Air 03/24/17 16:00 Room Air 03/24/17 14:54 37.0 88 14 154/68 (96) 98 Room Air 03/24/17 11:31 36.9 89 18 128/70 (89) 97 Room Air 03/24/17 10:06 84 96 Assessment & Plan Assessment: 81 yo female stable POD #2 s/p left troch nail Plan: 1. Med management 2. DVT prophylaxis- Lovenox, SCDs 3. PT/OT- TTWB left LE 4. D/C planning: pt interested In [facility]. Will likely require 3 day stay. Plan on transfer Saturday if accepted. Daughter to transport.
[2017-03-25] MEDS: ASPIRIN 81 MG ECTAB PO SCH (09:00)
--- NOTE | 2017-03-25 11:02 | Anesthesiology Progress Note ---
Anesthesia Post Op Note Date & Time Mar 25, 2017 at 11:02 Vital Signs Vital Signs Past 12 Hours Date Time Temp Pulse Resp B/P (MAP) Pulse Ox O2 Delivery O2 Flow Rate FiO2 03/25/17 07:35 Room Air 03/25/17 07:30 36.6 86 16 127/89 (102) 95 Room Air 03/24/17 23:45 Room Air Notes Mental Status: alert / awake / arousable, participated in evaluation Pt Amnestic to Procedure: Yes Nausea / Vomiting: adequately controlled Pain: adequately controlled Airway Patency, RR, SpO2: stable & adequate BP & HR: stable & adequate Hydration State: stable & adequate Neuraxial Anesthesia: sensory block resolved Anesthetic Complications: no major complications apparent
[2017-03-25] MEDS: HYDROXYUREA 500 MG CAP PO SCH ×2 (13:03→22:27)
[2017-03-25] MEDS: ENOXAPARIN 40 MG/0.4 ML SYR SQ SCH (13:30)
[2017-03-25 15:19] VITALS: BP 110/61; PULSE 98; TEMP 37.5; O2SAT 98
--- NOTE | 2017-03-25 17:10 | Progress Note ---
Internal Med Progress Note Date of Service: Mar 25, 2017. Provider Documentation: SUBJECTIVE: The patient was seen and examined S/P ORIF with Synthes trochanteric mid length femoral nail. Complains pain at the operation site Heather better today OOB in a chair pain is better controlled Getting PT OBJECTIVE: Vital Signs-as noted below Exam: General-No distress at rest Eyes-Normal ENT-normal Neck-Supple Lungs-Clear to auscultate bilaterally Heart-regular,no murmur appreciated Abdomen-Benign,no masses,bowel sound present Extremities-NO edema Neuro-AAOx3 Lab data as noted below. ASSESSMENT & PLAN: LEFT FEMUR FRACTURE::::s/p ORIF with Synthes trochanteric mid length femoral nail. S/p mechanical fal CBC shows chronically elevated platelets, otherwise labs unremarkable, EKG, CXR unremarkable, functional status good- climbs 16 steps daily without dyspnea Consult ortho- discussed with Valdo Reeder PA-C, appreciate input, patient is scheduled for OR tomorrow morning S/P ORIF with Synthes trochanteric mid length femoral nail. 03/23/17 pain management as per Ortho Pain is reasonably controlled Awaiting placement ELEVATED BP Likely secondary to pain, no hx of HTN Given hydralazine in clonidine in ER Continue hydralazine PRN Monitor BP-remains on the higher side Normalized CKD STAGE III Creat is stable Avoid nephrotoxins including NSAIDs Creatinine remains at normal level HYPOTHYROIDISM Check TSH-elevated Continue levothyroxine Will increase the dose to 75 Mcg ESSENTIAL THROMBOCYTHEMIA Follows with hematology Resume hydroxyurea after surgery Platelet remains stable Will restart Hydroxyurea OSTEOPOROSIS Resume vitamin D supplement after procedure Medically stable Awaiting placement Vital Signs: Date Time Temp Pulse Resp B/P (MAP) Pulse Ox O2 Delivery O2 Flow Rate FiO2 03/25/17 15:45 Room Air 03/25/17 15:19 37.5 98 18 110/61 (77) 98 Room Air 03/25/17 07:35 Room Air 03/25/17 07:30 36.6 86 16 127/89 (102) 95 Room Air 03/24/17 23:45 Room Air 03/24/17 22:53 36.9 93 16 153/63 (93) 98 Room Air
[2017-03-25] MEDS: DOCUSATE SODIUM/SENNA 50/8.6MG TAB PO SCH (22:26)
[2017-03-25 22:56] VITALS: BP 113/62; PULSE 88; TEMP 36.8; O2SAT 96
[2017-03-26] MEDS: LEVOTHYROXINE 75 MCG TAB PO SCH (05:29)
[2017-03-26] MEDS: OXYCODONE HCL IR 5 MG TAB (IMMEDIATE RELEASE) PO PRN ×2 (06:01→13:45)
[2017-03-26 07:37] VITALS: BP 125/65; PULSE 91; TEMP 37.1; O2SAT 96
--- NOTE | 2017-03-26 08:03 | Orthopedic Progress Note ---
Orthopedic Progress Note Date of Service Mar 26, 2017. Subjective Post OP Day: 3 Reports: feeling well, Denies: chest pain, SOB, nausea / vomiting, light headedness, calf pain Objective calves soft nontender, N/V intact, capillary refill less than 2 sec., dressing C /D/I, A&O x3, toes mobile Date Time Temp Pulse Resp B/P (MAP) Pulse Ox O2 Delivery O2 Flow Rate FiO2 03/26/17 07:37 37.1 91 16 125/65 (85) 96 Room Air 03/26/17 07:35 Room Air 03/26/17 00:05 Room Air 03/25/17 22:56 36.8 88 16 113/62 (79) 96 Room Air 03/25/17 15:45 Room Air 03/25/17 15:19 37.5 98 18 110/61 (77) 98 Room Air Assessment & Plan Assessment: 81 yo female stable POD #3 s/p left troch nail Plan: 1. Med management 2. DVT prophylaxis- Lovenox, SCDs 3. PT/OT- TTWB left LE 4. D/C planning: pt interested In [facility]. Will likely require 3 day stay. Plan on transfer Saturday if accepted. Daughter to transport. ORTHOPEDICALLY STABLE. SEE [employer] TECHNICIAN RECOMMENDATIONS FOR INSTRUCTIONS. ORTHO WILL SIGN OFF.
--- NOTE | 2017-03-26 08:06 | Consultant Recommendations ---
Bulwark Carpenter Recommendations Date of Service Mar 26, 2017. Bulwark Carpenter Recommendations [facility] [place] HIP FRACTURE SELF CARE INSTRUCTIONS: A. You are to ambulate with a walker or crutches for approximately 6 weeks. B. You are TOE TOUCH WEIGHT BEARING on your operative lower extremity for at least 6 weeks. C. Wear low heeled shoes with non-slip soles D. Be sure that your floors are free of things that could trip you throw rugs, electrical cords, and small objects. Avoid wet and waxed floors, especially with crutches/walker/cane. E. Try to walk several times a day with rest periods between. F. You may shower 48 hours after surgery and get the incision area wet, but DO NOT soak or submerge incision area in water. (No baths, swimming pools, hot tubs ) G. You may have a large, band-aid like dressing over your incision (Aquacel). This will remain on your incision for 7 days, and then can be removed. You CAN shower with this on. If incision is leaking through the dressing, please call the office . H. Do NOT apply soap or any ointment/lotions directly over incision. I. You may use ice as needed to operative site. SPECIAL CARE INSTRUCTIONS: VERY IMPORTANT TO READ AND REVIEW A. You may be at risk for phlebitis or blood clots. a. Wear surgical stockings (ZAIDA hose) for 2 weeks after surgery to improve circulation and reduce swelling. b. Take LOVENOX 40mg SQ daily for 4 weeks or as directed. This is your blood thinner. c. If you are on Coumadin- you will have daily/weekly blood work to monitor your levels. This will be done by either your family physician/ embroidery worker (if you are on Coumadin chronically) versus your orthopedic surgeon. Expect a phone call the day of or the day after your blood work is drawn to adjust your dose accordingly. B. There are a few signs you need to watch for after you are home. Call [facility] at [phone] if you experience any of the following: a. If you have a temperature of 101 degrees or higher. b. Sudden increase in pain in your hip not relieved by rest or pain medication. c. Any fluid or drainage from the incision; redness of the incision. d. Shortness of breath or chest pain. B. Please call [facility] at [phone] if you have any questions or concerns about your operation or recovery. C. Call your physician if: a. Temperature is greater than 101 degrees (F). b. Pain is not relieved by prescribed pain medications. c. Increase drainage or redness from incision. d. Unanswered questions or concerns. D. Pain Medication: a. You will be prescribed pain medication upon discharge that should last till your first post-operative appointment. b. If you experience nausea and/or skin rash, discontinue this medication and contact our office for an alternative medication. c. Caution- narcotic pain medication can cause constipation. FOLLOW UP VISIT: Please call [facility] at [phone] to schedule a follow up appointment 10-14 days from the date of your surgery date.
[2017-03-26] MEDS: ASPIRIN 81 MG ECTAB PO SCH (09:12)
--- NOTE | 2017-03-26 11:48 | Progress Note ---
Internal Med Progress Note Date of Service: Mar 26, 2017. Provider Documentation: SUBJECTIVE: The patient was seen and examined S/P ORIF with Synthes trochanteric mid length femoral nail. Complains pain at the operation site Denies any complaints OOB in a chair Minimal pain in left hip OBJECTIVE: Vital Signs-as noted below Exam: General-No distress at rest Eyes-Normal ENT-normal Neck-Supple Lungs-Clear to auscultate bilaterally Minimally decreased breath sound bilaterally Heart-regular,no murmur appreciated Abdomen-Benign,no masses,bowel sound present Extremities-NO edema Neuro-AAOx3 Lab data as noted below. ASSESSMENT & PLAN: LEFT FEMUR FRACTURE::::s/p ORIF with Synthes trochanteric mid length femoral nail. S/p mechanical fall CBC shows chronically elevated platelets, otherwise labs unremarkable, EKG, CXR unremarkable, functional status good- climbs 16 steps daily without dyspnea Consult ortho- discussed with Valdo Reeder PA-C, appreciate input, patient is scheduled for OR tomorrow morning S/P ORIF with Synthes trochanteric mid length femoral nail. 03/23/17 pain management as per Ortho Pain is reasonably controlled Accepted to [facility] Transport this afternoon ELEVATED BP Likely secondary to pain, no hx of HTN Given hydralazine in clonidine in ER Continue hydralazine PRN Monitor BP-remains on the higher side Normalized and remains stable CKD STAGE III Creat is stable Avoid nephrotoxins including NSAIDs Creatinine remains at normal level HYPOTHYROIDISM Check TSH-elevated Continue levothyroxine Will increase the dose to 75 Mcg TSH in 2-3weeks ESSENTIAL THROMBOCYTHEMIA Follows with hematology Resume hydroxyurea after surgery Platelet remains stable Will restart Hydroxyurea Recheck this morning OSTEOPOROSIS Resume vitamin D supplement after procedure Medically stable Will transfer to [facility] Vital Signs: Date Time Temp Pulse Resp B/P (MAP) Pulse Ox O2 Delivery O2 Flow Rate FiO2 03/26/17 07:37 37.1 91 16 125/65 (85) 96 Room Air 03/26/17 07:35 Room Air 03/26/17 00:05 Room Air 03/25/17 22:56 36.8 88 16 113/62 (79) 96 Room Air 03/25/17 15:45 Room Air 03/25/17 15:19 37.5 98 18 110/61 (77) 98 Room Air
[2017-03-26 12:54] LABS: HEMATOCRIT 27.4 % (37-47); MEAN CELL VOLUME 120.2 fL (80-100); MEAN CORPUSCULAR HEMOGLOBIN 40.8 pg (25-34); MEAN CORPUSCULAR HGB CONC 33.9 g/dl (32-36); MEAN PLATELET VOLUME 9.1 fL (7.4-10.4); PLATELET COUNT 569 K/uL (130-400); RED BLOOD COUNT 2.28 M/uL (4.2-5.4); WHITE BLOOD COUNT 8.18 K/uL (4.8-10.8)
[2017-03-26 13:13] LABS: BUN/CREATININE RATIO 22.8 (10-20); CREATININE 0.92 mg/dl (0.60-1.20); MAGNESIUM 2.2 mg/dl (1.8-2.4); POTASSIUM 4.5 mmol/L (3.5-5.1)
[2017-03-26] MEDS: ENOXAPARIN 40 MG/0.4 ML SYR SQ SCH (13:15)
[2017-03-26] MEDS: HYDROXYUREA 500 MG CAP PO SCH (13:15)
[2017-03-26 13:35] VITALS: BP 125/65; PULSE 91; TEMP 37.1; O2SAT 96
[2017-03-26] MEDS ORDERED: SYN75 PO (15:09)
[2017-03-26] MEDS ORDERED: ERGO1CAP41 PO (15:09)
[2017-03-26] MEDS ORDERED: RXC5 PO (15:09)
[2017-03-26] MEDS ORDERED: MRLP17X PO (15:09)
[2017-03-26] MEDS ORDERED: LVNIS40 SQ (15:09)
--- NOTE | 2017-03-26 15:12 | Discharge Instructions ---
Discharge Instructions Date of Service Mar 26, 2017. Admission Reason for Admission: Hip Fracture Discharge Discharge Diagnosis / Problem: Left Femur Fracture S/P Orif Discharge Goals Goal(s): Prevent Disease Progression Activity Recommendations Activity Level: Assistance Required Therapies: Physical Therapy, Occupational Therapy . Additional Information Patient informed of condition: Yes Advance Directives: No DNR: No Level of Care: Skilled Communicable Disease: No Prognosis: Stable Blanco Catheter: No Instructions / Follow-Up Instructions / Follow-Up Please make an appointment with your PCP in 1 week following discharge from the facility Current Hospital Diet Patient's current hospital diet: AHA Diet (Heart Healthy) Discharge Diet Recommended Diet: AHA Diet (Heart Healthy) Procedures Procedures Performed: ORIF Trochanteric femoral nail left hip Pending Studies Studies pending at discharge: no Medical Emergencies . Who to Call and When: Medical Emergencies: If at any time you feel your situation is an emergency, please call 911 immediately. . Non-Emergent Contact Non-Emergency issues call your: Primary Care Provider . Past History Medical & Surgical History: (1) Fracture, intertrochanteric, left femur (2) Hip fracture (3) HTN (hypertension) (4) Essential thrombocythemia (5) Hypothyroidism (6) Osteoporosis (7) S/p spinal injection (8) S/P appendectomy (9) History of hysterectomy . "Provider Documentation" section prepared by Tio Ruelas. . Business Continuity Management Director Recommendations Business Continuity Management Director Recommendations: [facility] [place] DISCHARGE INSTRUCTIONS: HIP FRACTURE SELF CARE INSTRUCTIONS: A. You are to ambulate with a walker or crutches for approximately 6 weeks. B. You are TOE TOUCH WEIGHT BEARING on your operative lower extremity for at least 6 weeks. C. Wear low heeled shoes with non-slip soles D. Be sure that your floors are free of things that could trip you throw rugs, electrical cords, and small objects. Avoid wet and waxed floors, especially with crutches/walker/cane. E. Try to walk several times a day with rest periods between. F. You may shower 48 hours after surgery and get the incision area wet, but DO NOT soak or submerge incision area in water. (No baths, swimming pools, hot tubs ) G. You may have a large, band-aid like dressing over your incision (Aquacel). This will remain on your incision for 7 days, and then can be removed. You CAN shower with this on. If incision is leaking through the dressing, please call the office . H. Do NOT apply soap or any ointment/lotions directly over incision. I. You may use ice as needed to operative site. SPECIAL CARE INSTRUCTIONS: VERY IMPORTANT TO READ AND REVIEW A. You may be at risk for phlebitis or blood clots. a. Wear surgical stockings (ZAIDA hose) for 2 weeks after surgery to improve circulation and reduce swelling. b. Take LOVENOX 40mg SQ daily for 4 weeks or as directed. This is your blood thinner. c. If you are on Coumadin- you will have daily/weekly blood work to monitor your levels. This will be done by either your family physician/ supervisor special education (if you are on Coumadin chronically) versus your orthopedic surgeon. Expect a phone call the day of or the day after your blood work is drawn to adjust your dose accordingly. B. There are a few signs you need to watch for after you are home. Call [facility] at [phone] if you experience any of the following: a. If you have a temperature of 101 degrees or higher. b. Sudden increase in pain in your hip not relieved by rest or pain medication. c. Any fluid or drainage from the incision; redness of the incision. d. Shortness of breath or chest pain. B. Please call [facility] at [phone] if you have any questions or concerns about your operation or recovery. C. Call your physician if: a. Temperature is greater than 101 degrees (F). b. Pain is not relieved by prescribed pain medications. c. Increase drainage or redness from incision. d. Unanswered questions or concerns. D. Pain Medication: a. You will be prescribed pain medication upon discharge that should last till your first post-operative appointment. b. If you experience nausea and/or skin rash, discontinue this medication and contact our office for an alternative medication. c. Caution- narcotic pain medication can cause constipation. FOLLOW UP VISIT: Please call [facility] at [phone] to schedule a follow up appointment 10-14 days from the date of your surgery date. Core Measure Problem Core Measures: None
--- NOTE | 2017-03-27 07:55 | Discharge Summary ---
Discharge Summary Date of Service Mar 27, 2017. Discharge Summary Admission Date: Mar 22, 2017 at 15:27 Discharge Date: Mar 26, 2017 Discharge Disposition: [facility] facility Principal Diagnosis: Left Femur Fracture S/P Orif Secondary Diagnoses/Problems: Please see H&P and Hospital progress note Consultations: Ortho Medication Reconciliation New Medications: Enoxaparin (Enoxaparin Sodium) 40 Mg/0.4 Ml Inj 40 MG SQ Q24H for 28 Days, #28 Ergocalciferol (Vitamin D 04605 Unit) 50,000 Unit Cap 05940 INTERUNIT PO Dawson@0900 for 35 Days, #5 CAP Levothyroxine Sodium (Synthroid) 75 Mcg Tab 75 MCG PO DAILYBB for 30 Days, #30 TAB Oxycodone HCl (Oxycodone HCl) 5 Mg Tab 5 MG PO Q4H PRN for Moderate Pain (pain scale 4-6) for 7 Days, #28 TAB Polyethylene (Miralax) 17 Gm Pow 17 GM PO DAILY PRN for Constipation for 30 Days, #30 DOSE Continued Medications: Aspirin (Aspirin 81) 81 Mg Tab 81 MG PO DAILY Cholecalciferol (Vitamin D) 5,000 Unit Tab 1 TAB PO DAILY Cyanocobalamin (Vitamin B-12) 1,000 Mcg Tab 1000 MCG PO BID, TAB Hydroxyurea (Hydrea Cap) 500 Mg Cap 500 MG PO BID, CAP Afternoon and night Multivitamin (Multivitamin) Tab 1 TAB PO DAILY, TAB Discontinued Medications: Levothyroxine Sodium (Levothyroxine Sodium) 50 Mcg Tab 1 TAB PO DAILY, TAB Admission Information HPI (per Admitting provider): This is an 81 y/o female with PMH of hypothyroidism, osteoporosis, essential thrombocythemia, CKD stage III, chronic back pain, and other problems listed below who presents to the ED with left hip pain s/p mechanical fall. Patient was outside her home today and was knocked down by her dog onto her left side. She was unable to stand up due to left hip pain. Her son found her and called 911 and she was brought to ER by ambulance. In the ER she received total of 8 mg of morphine. States hip pain is controlled if she lies still but rates pain 10/10 with movement. Patient was in her normal state of health prior to the fall. Has chronic low back pain unchanged x 4 years with radiation down left leg to the foot and left leg paresthesias. Denies LE weakness. Has chronic bladder leaking and frequency which is unchanged. Follows with Dr. Bagley and has received lumbar spinal injection. Patient climbs 16 steps daily without POWER. Denies fever, chills, chest pain, abdominal pain, N/V/D/C, dysuria. BP is elevated in ER. Pt states her BP elevates situationally but no chronic hypertension. Denies hx of CAD, DM, CVA. No prior echo. Past Medical/Surgical History Medical Problems: (1) Essential thrombocythemia Status: Chronic (2) Hypothyroidism Status: Chronic (3) Osteoporosis Status: Chronic (4) S/p spinal injection Status: Chronic Surgical Problems: (1) History of hysterectomy Status: Chronic (2) S/P appendectomy Status: Chronic Family History FH: CAD (coronary artery disease) FATHER Social History Smoking Status: Never Smoker Alcohol Use: none Marital Status: Housing status: lives with family Occupational Status: retired Allergies Coded Allergies: No Known Allergies (Unverified , 03/22/17) Home Medications Scheduled Aspirin (Aspirin 81), 81 MG PO DAILY Cholecalciferol (Vitamin D), 1 TAB PO DAILY Cyanocobalamin (Vitamin B-12), 1,000 MCG PO BID Hydroxyurea (Hydrea Cap), 500 MG PO BID Levothyroxine Sodium (Levothyroxine Sodium), 1 TAB PO DAILY Multivitamin (Multivitamin), 1 TAB PO DAILY Review of Systems Constitutional: No fever, No chills ENT: No nasal symptoms, No sore throat Respiratory: No cough, No shortness of breath, No dyspnea on exertion Cardiovascular: No chest pain Abdomen: No pain, No nausea, No vomiting, No diarrhea Musculoskeletal: + joint pain (see HPI) Genitourinary - Female: + urinary frequency (chronic), + urinary incontinence ( chronic), No dysuria Neurologic: + problem reported (see HPI) Psychiatric: No anxiety Integumentary: No new/changing skin lesions Physical Ex - H&P Physical Exam Vital Signs Date Time Temp Pulse Resp B/P (MAP) Pulse Ox O2 Delivery O2 Flow Rate FiO2 03/22/17 14:46 91 24 181/89 98 Room Air 03/22/17 14:23 86 26 199/83 100 Room Air 03/22/17 14:14 100 Room Air 03/22/17 13:58 86 19 201/138 100 Room Air 03/22/17 13:41 86 19 199/89 100 Room Air 03/22/17 13:20 03/22/17 13:00 75 03/22/17 12:39 77 21 210/86 99 Room Air 03/22/17 12:11 36.8 86 22 202/75 97 Room Air General Appearance: WD/WN, + mild distress (due to hip pain), + pertinent finding (son at bedside) Head: normocephalic, atraumatic Eyes: normal inspection, sclerae normal ENT: pharynx normal, + pertinent finding (bilateral hearing loss) Neck: supple, trachea midline Respiratory/Chest: lungs clear, normal breath sounds, no respiratory distress Cardiovascular: regular rate, rhythm, + systolic murmur (grade II) Abdomen/GI: normal bowel sounds, non tender, soft Extremities/Musculoskelatal: no pedal edema, + pertinent finding (left lateral hip tender to palpation. pain with minimal movement of left hip. LLE externally rotated. ) Neurologic/Psych: alert, normal mood/affect, oriented x 3, + pertinent finding (sensation to light touch intact bilateral feet. ankle flexion/ extension intact bilaterally ) Skin: normal color, warm/dry Diagnostics - H&P Diagnostics Laboratory Results Results Past 24 Hours Test 03/22/17 12:19 03/22/17 14:30 Range/Units White Blood Count 7.22 4.8-10.8 K/uL Red Blood Count 2.75 4.2-5.4 M/uL Hemoglobin 11.3 12.0-16.0 g/dL Hematocrit 32.8 37-47 % Mean Corpuscular Volume 119.3 80-100 fL Mean Corpuscular Hemoglobin 41.1 25-34 pg Mean Corpuscular Hemoglobin Concent 34.5 32-36 g/dl Platelet Count 459 130-400 K/uL Mean Platelet Volume 9.4 7.4-10.4 fL Neutrophils (%) (Auto) 65.5 % Lymphocytes (%) (Auto) 23.4 % Monocytes (%) (Auto) 10.0 % Eosinophils (%) (Auto) 0.4 % Basophils (%) (Auto) 0.4 % Neutrophils # (Auto) 4.73 1.4-6.5 K/uL Lymphocytes # (Auto) 1.69 1.2-3.4 K/uL Monocytes # (Auto) 0.72 0.11-0.59 K/uL Eosinophils # (Auto) 0.03 0-0.5 K/uL Basophils # (Auto) 0.03 0-0.2 K/uL RDW Standard Deviation 57.2 36.4-46.3 fL RDW Coefficient of Variation 13.2 11.5-14.5 % Immature Granulocyte % (Auto) 0.3 % Immature Granulocyte # (Auto) 0.02 0.00-0.02 K/uL Macrocytosis PRESENT Prothrombin Time 12.0 9.0-12.0 SECONDS Prothromb Time International Ratio 1.1 0.9-1.1 Activated Partial Thromboplast Time 28.8 21.0-31.0 SECONDS Partial Thromboplastin Ratio 1.1 Sodium Level 138 136-145 mmol/L Potassium Level 3.8 3.5-5.1 mmol/L Chloride Level 105 98-107 mmol/L Carbon Dioxide Level 26 21-32 mmol/L Anion Gap 7.0 3-11 mmol/L Blood Urea Nitrogen 17 7-18 mg/dl Creatinine 1.10 0.60-1.20 mg/dl Est Creatinine Clear Calc Drug Dose 33.7 ml/min Estimated GFR () 54.9 Estimated GFR (Non- 47.4 BUN/Creatinine Ratio 15.3 10-20 Random Glucose 108 70-99 mg/dl Calcium Level 9.1 8.5-10.1 mg/dl Urine Color YELLOW Urine Appearance CLEAR CLEAR Urine pH 8.0 4.5-7.5 Urine Specific [place] 1.015 1.000-1.030 Urine Protein NEG NEG Urine Glucose (UA) NEG NEG Urine Ketones 1+ NEG Urine Occult Blood NEG NEG Urine Nitrite NEG NEG Urine Bilirubin NEG NEG Urine Urobilinogen NEG NEG Urine Leukocyte Esterase NEG NEG Diagnostic Radiology LEFT FEMUR 2 VIEWS IMPRESSION: Suspect a nondistracted intertrochanteric fracture of the left femur. SINGLE VIEW CHESTIMPRESSION: No acute cardiopulmonary abnormality. LEFT HIP 2 VIEWSIMPRESSION: Nondisplaced intertrochanteric fracture of the proximal left femur. EKG Normal sinus rhythm, 80 bpm, Normal ECG, No previous ECGs available, as per cardiology read, also reviewed by me Impression - H&P Impression Assessment and Plan LEFT FEMUR FRACTURE S/p mechanical fall Management per protocol CBC shows chronically elevated platelets, otherwise labs unremarkable, EKG, CXR unremarkable, functional status good- climbs 16 steps daily without dyspnea Check echo prior to surgery due to murmur, if normal may proceed to OR Consult ortho- discussed with Valdo Reeder PA-C, appreciate input, patient is scheduled for OR tomorrow morning NPO after midnight ELEVATED BP Likely secondary to pain, no hx of HTN Given hydralazine in clonidine in ER Continue hydralazine PRN Monitor BP CKD STAGE III Creat is stable Avoid nephrotoxins including NSAIDs HYPOTHYROIDISM Check TSH Continue levothyroxine ESSENTIAL THROMBOCYTHEMIA Follows with hematology Resume hydroxyurea after surgery OSTEOPOROSIS Resume vitamin D supplement after procedure Patient seen in collaboration with Dr. Ruelas. Please see his addendum. Attending Addendum: The patient was seen and [id number] s/p Mechanical fall resulting in fracture of the left Femur Is in pain but no other symptoms O/E Hemodynamically stable Chest-clear Heart-regular,2/6 ESM Precordial area Abdomen-benign Labs and Imaging studies were reviewed Agree with the assessment and plan DR Donovan Ruelas Advanced Directives Existing Living Will: No Existing Power of Research Greenhouse Supervisor: No VTE Prophylaxis VTE Risk Assessment Done? Y/N: Yes Risk Level: Moderate Given or contraindicated: SCD's Physical Exam (per Admitting): General Appearance: WD/WN, + mild distress (due to hip pain), + pertinent finding (son at bedside) Head: normocephalic, atraumatic Eyes: normal inspection, sclerae normal ENT: pharynx normal, + pertinent finding (bilateral hearing loss) Neck: supple, trachea midline Respiratory/Chest: lungs clear, normal breath sounds, no respiratory distress Cardiovascular: regular rate, rhythm, + systolic murmur (grade II) Abdomen/GI: normal bowel sounds, non tender, soft Extremities/Musculoskelatal: no pedal edema, + pertinent finding (left lateral hip tender to palpation. pain with minimal movement of left hip. LLE externally rotated. ) Neurologic/Psych: alert, normal mood/affect, oriented x 3, + pertinent finding (sensation to light touch intact bilateral feet. ankle flexion/ extension intact bilaterally ) Skin: normal color, warm/dry Hospital Course LEFT FEMUR FRACTURE::::s/p ORIF with Synthes trochanteric mid length femoral nail. S/p mechanical fall CBC shows chronically elevated platelets, otherwise labs unremarkable, EKG, CXR unremarkable, functional status good- climbs 16 steps daily without dyspnea Consult ortho- discussed with Valdo Reeder PA-C, appreciate input, patient is scheduled for OR tomorrow morning S/P ORIF with Synthes trochanteric mid length femoral nail. 03/23/17 pain management as per Ortho Pain is reasonably controlled Accepted to [facility] this afternoon ELEVATED BP Likely secondary to pain, no hx of HTN Given hydralazine in clonidine in ER Continue hydralazine PRN Monitor BP-remains on the higher side Normalized and remains stable CKD STAGE III Creat is stable Avoid nephrotoxins including NSAIDs Creatinine remains at normal level HYPOTHYROIDISM Check TSH-elevated Continue levothyroxine Will increase the dose to 75 Mcg TSH in 2-3weeks ESSENTIAL THROMBOCYTHEMIA Follows with hematology Resume hydroxyurea after surgery Platelet remains stable Will restart Hydroxyurea Recheck this morning OSTEOPOROSIS Resume vitamin D supplement after procedure Medically stable Will transfer to [facility] Total time spent on discharge = 35 minutes This includes examination of the patient, discharge planning, medication reconciliation, and communication with other providers. Discharge Instructions Date of Service Mar 26, 2017. Admission Reason for Admission: Hip Fracture Discharge Discharge Diagnosis / Problem: Left Femur Fracture S/P Orif Discharge Goals Goal(s): Prevent Disease Progression Activity Recommendations Activity Level: Assistance Required Therapies: Physical Therapy, Occupational Therapy . Additional Information Patient informed of condition: Yes Advance Directives: No DNR: No Level of Care: Skilled Communicable Disease: No Prognosis: Stable Blanco Catheter: No Instructions / Follow-Up Instructions / Follow-Up Please make an appointment with your PCP in 1 week following discharge from the facility Current Hospital Diet Patient's current hospital diet: AHA Diet (Heart Healthy) Discharge Diet Recommended Diet: AHA Diet (Heart Healthy) Procedures Procedures Performed: ORIF Trochanteric femoral nail left hip Pending Studies Studies pending at discharge: no Medical Emergencies . Who to Call and When: Medical Emergencies: If at any time you feel your situation is an emergency, please call 911 immediately. . Non-Emergent Contact Non-Emergency issues call your: Primary Care Provider . Past History Medical & Surgical History: (1) Fracture, intertrochanteric, left femur (2) Hip fracture (3) HTN (hypertension) (4) Essential thrombocythemia (5) Hypothyroidism (6) Osteoporosis (7) S/p spinal injection (8) S/P appendectomy (9) History of hysterectomy . "Provider Documentation" section prepared by Tio Ruelas. . Utilization Review Rn Recommendations Utilization Review Rn Recommendations: [facility] DISCHARGE INSTRUCTIONS: HIP FRACTURE SELF CARE INSTRUCTIONS: A. You are to ambulate with a walker or crutches for approximately 6 weeks. B. You are TOE TOUCH WEIGHT BEARING on your operative lower extremity for at least 6 weeks. C. Wear low heeled shoes with non-slip soles D. Be sure that your floors are free of things that could trip you throw rugs, electrical cords, and small objects. Avoid wet and waxed floors, especially with crutches/walker/cane. E. Try to walk several times a day with rest periods between. F. You may shower 48 hours after surgery and get the incision area wet, but DO NOT soak or submerge incision area in water. (No baths, swimming pools, hot tubs ) G. You may have a large, band-aid like dressing over your incision (Aquacel). This will remain on your incision for 7 days, and then can be removed. You CAN shower with this on. If incision is leaking through the dressing, please call the office . H. Do NOT apply soap or any ointment/lotions directly over incision. I. You may use ice as needed to operative site. SPECIAL CARE INSTRUCTIONS: VERY IMPORTANT TO READ AND REVIEW A. You may be at risk for phlebitis or blood clots. a. Wear surgical stockings (ZAIDA hose) for 2 weeks after surgery to improve circulation and reduce swelling. b. Take LOVENOX 40mg SQ daily for 4 weeks or as directed. This is your blood thinner. c. If you are on Coumadin- you will have daily/weekly blood work to monitor your levels. This will be done by either your family physician/ all around presser (if you are on Coumadin chronically) versus your orthopedic surgeon. Expect a phone call the day of or the day after your blood work is drawn to adjust your dose accordingly. B. There are a few signs you need to watch for after you are home. Call [facility] [place] at [phone] if you experience any of the following: a. If you have a temperature of 101 degrees or higher. b. Sudden increase in pain in your hip not relieved by rest or pain medication. c. Any fluid or drainage from the incision; redness of the incision. d. Shortness of breath or chest pain. B. Please call [facility] at [phone] if you have any questions or concerns about your operation or recovery. C. Call your physician if: a. Temperature is greater than 101 degrees (F). b. Pain is not relieved by prescribed pain medications. c. Increase drainage or redness from incision. d. Unanswered questions or concerns. D. Pain Medication: a. You will be prescribed pain medication upon discharge that should last till your first post-operative appointment. b. If you experience nausea and/or skin rash, discontinue this medication and contact our office for an alternative medication. c. Caution- narcotic pain medication can cause constipation. FOLLOW UP VISIT: Please call [facility] at [phone] to schedule a follow up appointment 10-14 days from the date of your surgery date. Core Measure Problem Core Measures: None <Electronically signed by Tio Ruelas M.D.> Signed: 03/26/17 1512 Additional Copies To Talita Diana D.O.
[2017-03-31] MEDS ORDERED: ERGOCALCIFEROL 50,000 INTER.UNIT CAP PO SCH (09:00)
== END 2017-03-26 17:19 | DRG 482 ==
LOC: EDBD 11:59 → C.EDA 12:00 → C.MSW 15:27 → ENRESERV 15:49
PROVIDERS: ADMIT Internal Medicine; ATTEND Internal Medicine
PROC: 0QS706Z Reposition Left Upper Femur with Intramedullary Internal Fixation Device, Open Approach (ICD-10-PCS; principal; 2017-03-23 07:30)
DX: S72.142A Displaced intertrochanteric fracture of left femur, initial encounter for closed fracture (principal); S72.22XA Displaced subtrochanteric fracture of left femur, initial encounter for closed fracture; W18.39XA Other fall on same level, initial encounter; Z82.49 Family history of ischemic heart disease and other diseases of the circulatory system; Z79.82 Long term (current) use of aspirin; N18.3 Chronic kidney disease, stage 3 (moderate); E03.9 Hypothyroidism, unspecified; D47.3 Essential (hemorrhagic) thrombocythemia; R03.0 Elevated blood-pressure reading, without diagnosis of hypertension; M81.0 Age-related osteoporosis without current pathological fracture; G89.29 Other chronic pain; M54.9 Dorsalgia, unspecified